=== PATIENT | female | born 1990 | race Caucasian/White ===

== ENCOUNTER → 2016-03-05 12:19 | Outpatient (CLI) | payer OTHER ==
[2014-06-19 05:28] VITALS: BMI 30.2
[~2016-03-05 12:19] MED LIST: DIABETA2.5 MG PO; IBUPROFEN600 MG PO; PERCOCET 5-3251 TAB PO; PRENATABS RX TA1 TAB PO
[2016-03-05 13:15] LABS: HCG SERUM NEGATIVE (NEGATIVE)
== END | disposition home or self-care (01) ==
LOC: D.LAB 08:15
PROVIDERS: Internal Medicine Gastroenterology
DX: N83.209 Unspecified ovarian cyst, unspecified side (principal); R10.2 Pelvic and perineal pain; N93.9 Abnormal uterine and vaginal bleeding, unspecified

== ENCOUNTER → 2016-04-23 16:35 | Outpatient (CLI) | payer OTHER ==
[2014-06-19 05:28] VITALS: BMI 30.2
== END | disposition home or self-care (01) ==
LOC: D.CT 16:35
DX: R31.0 Gross hematuria (principal)